=== PATIENT | female | born 1955 | race Caucasian/White ===

== ENCOUNTER → 2017-04-26 | Outpatient (CLI) | payer OTHER ==
--- NOTE | 2017-04-26 14:13 | REPMRS ---
Patient History The patient states she had a clinical breast exam in Patient is postmenopausal. No known family history of cancer. Digital Woman Screen Mammo: April 26, 2017 - Exam #: [id number] Bilateral CC and MLO view(s) were taken. Technologist: Cecelia Nix, Technologist Prior study comparison: March 27, 2012, digital woman screen mammo performed at [facility]. FINDINGS: The breast tissue is heterogeneously dense. This may lower the sensitivity of mammography. The patient states that there are no palpable abnormalities or other breast complaints. There has been no change in the appearance of the mammogram from the prior studies. There is a moderate amount of residual fibroglandular tissue which is fairly symmetric. There is no interval development of dominant mass, areas of architectural distortion, or clustered microcalcification typical of malignancy. ASSESSMENT: BI-RADS/ACR category 2 mammogram. Benign finding(s). Recommendation Routine screening mammogram in 1 year (for women over age 40). This mammogram was interpreted with the aid of an FDA-approved computer-aided dectection system. A. Negative x-ray reports should not delay biopsy if a dominant or clinically suspicious mass is present. B. Not all cancers are identified by mammography. C. Adenosis and dense breast may obscure an underlying neoplasm. Electronically Signed By: Jose M Garibay M.D. 04/26/17 [id number]
== END ==
LOC: M WHC 13:02
PROVIDERS: ATTEND Nurse Practitioner Family
DX: Z12.31 Encounter for screening mammogram for malignant neoplasm of breast (principal)

== ENCOUNTER → 2018-05-01 | Outpatient (REF) | payer OTHER ==
[2018-05-03 14:15] LABS: HPV HYBRID CAPTURE II Negative (Negative)
== END ==
LOC: M SFHCWAGY 13:12
DX: Z12.4 Encounter for screening for malignant neoplasm of cervix (principal)

== ENCOUNTER → 2018-05-01 | Outpatient (CLI) | payer OTHER | LOC: M WHC 13:13 | DX: Z12.31 Encounter for screening mammogram for malignant neoplasm of breast (principal); N60.31 Fibrosclerosis of right breast; N60.32 Fibrosclerosis of left breast ==

== ENCOUNTER → 2018-08-10 | Outpatient (REF) | payer OTHER ==
[2018-08-10 19:02] LABS: APPEARANCE, URINE CLEAR (CLEAR); BACTERIA, URINE AUTO 2+ (NEGATIVE); BILIRUBIN, URINE AUTO NEGATIVE (NEGATIVE); BLOOD, URINE BLOOD NEGATIVE (NEGATIVE); COLOR, URINE YELLOW (YELLOW); GLUCOSE, URINE (UA) AUTO NEGATIVE (NEGATIVE); KETONE, URINE AUTO NEGATIVE (NEGATIVE); LEUKOCYTE ESTERASE, URINE AUTO NEGATIVE (NEGATIVE); NITRITE, URINE AUTO NEGATIVE (NEGATIVE); PROTEIN, URINE AUTO NEGATIVE (NEGATIVE); RBC, URINE AUTO 4 /HPF (0-3); SPECIFIC GRAVITY URINE AUTO 1.012 (1.002-1.035); SQUAMOUS EPITHELIAL CELL UR AU 0 /HPF (0-6); UROBILINOGEN, URINE AUTO 0.2 mg/dL (0.0-2.0); WBC, URINE AUTO 1 /HPF (0-3)
== END ==
LOC: M SMT 17:05
PROVIDERS: ATTEND Urology Pediatric Urology
DX: R31.9 Hematuria, unspecified (principal)

== ENCOUNTER → 2018-08-10 | Outpatient (REF) | payer OTHER | LOC: M SFHCWAGY 15:49 | PROVIDERS: ATTEND Nurse Practitioner Family | DX: Z12.4 Encounter for screening for malignant neoplasm of cervix (principal) ==

== ENCOUNTER → 2018-08-28 | Outpatient (CLI) | payer OTHER ==
[2018-08-28 17:15] LABS: BASO # 0.1 10^3/uL (0.0-0.2); BASO % 0.7 % (0.0-1.0); EOS # 0.3 10^3/uL (0.0-0.50); EOS % 3.5 % (0.0-3.0); HEMATOCRIT 45.2 % (36.0-47.0); LYMPH # 2.9 10^3/uL (1.5-4.5); LYMPH % 38.4 % (24.0-44.0); MEAN CORPUSCULAR HEMOGLOBIN 31.4 pg (27.0-33.0); MEAN CORPUSCULAR HGB CONC 33.2 g/dl (32.0-36.5); MEAN CORPUSCULAR VOLUME 94.6 fl (80.0-96.0); MONO # 0.7 10^3/uL (0.0-0.8); MONO % 8.7 % (0.0-5.0); NEUTROPHILS # 3.7 10^3/uL (1.8-7.7); NEUTROPHILS % 48.6 % (36.0-66.0); PLATELET COUNT, AUTOMATED 319 10^3/uL (150-450); RED BLOOD COUNT 4.78 10^6/uL (4.00-5.40); WHITE BLOOD COUNT 7.5 10^3/uL (4.0-10.0)
[2018-08-28 17:25] LABS: COLLAGEN EPINEPHRINE 152 SECONDS (74-162)
[2018-08-28 17:29] LABS: PROTHROMBIN TIME 13.3 SECONDS (12.1-14.4)
[2018-08-28 17:30] LABS: ALBUMIN 4.1 GM/DL (3.2-5.2); ALT/SGPT 29 U/L (12-78); ANTI-STREPTOLYSIN O QUANT 36.1 IU/ML (<214.0); BILIRUBIN,TOTAL 0.3 MG/DL (0.2-1.0); BLOOD UREA NITROGEN 19 MG/DL (7-18); CALCIUM LEVEL 9.5 MG/DL (8.8-10.2); CARBON DIOXIDE LEVEL 30 MEQ/L (21-32); CHLORIDE LEVEL 108 MEQ/L (98-107); CREATININE FOR GFR 0.87 MG/DL (0.55-1.30); GLOMERULAR FILTRATION RATE > 60.0 (>45); GLUCOSE, FASTING 89 MG/DL (70-100); PARTIAL THROMBOPLASTIN TIME 33.7 SECONDS (25.4-37.6); POTASSIUM SERUM 4.7 MEQ/L (3.5-5.1); SODIUM LEVEL 142 MEQ/L (136-145); TOTAL PROTEIN 7.1 GM/DL (6.4-8.2)
== END ==
LOC: M SMT 13:13
PROVIDERS: ATTEND Urology Pediatric Urology
DX: R31.9 Hematuria, unspecified (principal)

== ENCOUNTER → 2018-08-28 | Outpatient (CLI) | payer OTHER ==
[~2018-08-28] MED LIST: ISOVUE-370 76% 100ML VIAL (Q9967) As Ordered ONE
--- NOTE | 2018-08-29 07:33 | REP ---
Clinical: Hematuria. Technique: Axial precontrast, contrast enhanced, and delayed images of the abdomen and pelvis using 100 ml Isovue 370 intravenous contrast material with coronal and sagittal re-formations. Findings: Evaluation of the urinary tract system demonstrates normal appearance the bilateral kidneys in all phases of enhancement. No evidence for nephroureterolithiasis, hydroureteronephrosis, significant cystic or renal mass lesion identified. Kidneys demonstrate symmetric enhancement along with symmetric excretion on delayed imaging. Liver, spleen, pancreas, right adrenal gland are normal. 3.5 cm left adrenal adenoma identified. The enteric system is without obstruction or acute inflammatory process. Evidence for prior gastric bypass surgery noted. Normal terminal ileum and appendix identified in the right lower quadrant. Colonic and sigmoid diverticulosis noted without acute diverticulitis. Pelvis demonstrates normal bladder and age-appropriate uterus/adnexa. No ascites. No free air. No adenopathy. Abdominal aorta and vasculature without aneurysm or dissection. Musculoskeletal structures demonstrate grade 1 anterolisthesis at L4-5 with chronic spondylolysis and associated hypertrophic facet changes. Advanced degenerative disc osteophyte complex also noted at L2-3. Impression: 1. Normal appearance to the urinary tract system. 2. Diverticulosis without acute diverticulitis. 3. 3.5 cm benign left adrenal adenoma. 4. Chronic grade 1 spondylolisthesis with spondylolysis at L4-5 along with advanced focal degenerative disc osteophyte complex at L2-3. Electronically Signed by Ron Jarvis MD 08/29/2018 07:25 A
== END ==
LOC: M RAD 13:41
PROVIDERS: ATTEND Urology Pediatric Urology
DX: R31.9 Hematuria, unspecified (principal); K57.30 Diverticulosis of large intestine without perforation or abscess without bleeding; D35.01 Benign neoplasm of right adrenal gland; Z98.84 Bariatric surgery status; M43.16 Spondylolisthesis, lumbar region
CPT/HCPCS: 74178; Q9967

== ENCOUNTER → 2018-09-03 | Outpatient (REF) | payer OTHER | LOC: M SMT 17:15 | PROVIDERS: ATTEND Urology Pediatric Urology | DX: R31.9 Hematuria, unspecified (principal) ==

== ENCOUNTER → 2018-09-14 | Outpatient (REF) | payer OTHER | LOC: M SMT 16:55 | PROVIDERS: ATTEND Urology Pediatric Urology | DX: R31.9 Hematuria, unspecified (principal) ==

== ENCOUNTER → 2019-03-13 | Outpatient (CLI) | payer OTHER ==
--- NOTE | 2019-03-13 19:53 | REP ---
MRI LEFT ANKLE: TECHNIQUE: Sagittal proton density, STIR, axial proton density fat sat, T1, coronal proton density, STIR. The Achilles, anterior tibial and peritoneal tendons are intact without significant tenosynovitis. There is a partial tear of the distal posterior tibial tendon. There is mild fluid surrounding portions of the flexor halluces longus and flexor digitorum longus suggesting mild tenosynovitis, the fluid surrounding the flexor digitorum longus is above the level of the ankle joint and the fluid surrounding the flexor halluces longus is in the plantar aspect of the foot adjacent to the distal calcaneus. Anterior and posterior talofibular, calcaneofibular, tibiofibular and deltoid ligaments are intact. The plantar tendon is intact. There is no evidence of plantar fasciitis. Increased signal and fluid is seen in the sinus tarsi suggesting sinus tarsi syndrome. There is minor marrow edema in the medial and lateral malleoli. There is diffuse arthritic change of the intertarsal joints with subchondral marrow edema, specifically subchondral marrow edema is seen in the distal navicular, the cuneiform bones and base of metatarsals. No osteochondral defect is seen along the talar dome. IMPRESSION: Partial tear distal posterior tibial tendon. There is mild fluid around the superior flexor digitorum longus tendon and plantar aspect of flexor halluces longus tendon suggesting mild tenosynovitis. 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 Arthritic changes of the intertarsal and tarsal/metatarsal joints. Electronically Signed by Jose M Malagon MD 03/15/2019 10:52 A
== END ==
LOC: M RAD 15:33
PROVIDERS: ATTEND Podiatrist
DX: M66.372 Spontaneous rupture of flexor tendons, left ankle and foot (principal)

== ENCOUNTER → 2019-07-09 | Outpatient (CLI) | payer OTHER ==
--- NOTE | 2019-07-10 09:24 | REPMRS ---
Patient History The patient states she had a clinical breast exam in June 2019.No known family history of cancer. No Hormone Replacement Therapy Digital Woman Screen Mammo: July 09, 2019 - Exam #: [id number] Bilateral CC and MLO view(s) were taken. Technologist: Ирина Bauer, Technologist Prior study comparison: May 01, 2018, bilateral digital woman screen mammo performed at [facility]. April 26, 2017, digital woman screen mammo performed at [facility]. April 25, 2016, digital woman screen mammo performed at [facility]. FINDINGS: The breast tissue is heterogeneously dense. This may lower the sensitivity of mammography. There is a moderate amount of heterogeneously dense fibroglandular tissue which is fairly symmetric. There is no interval development of dominant mass, architectural distortion, or grouped microcalcification typical of malignancy. There has been no change in the appearance of the mammogram from the prior studies. 3-D tomosynthesis shows no additional findings. Assessment: BI-RADS/ACR category 1 mammogram. Negative Mammogram. Recommendation Routine screening mammogram of both breasts in 1 year (for women over age 40). This patient's Lifetime Breast Cancer RIsk is estimated at 7.2 %. This mammogram was interpreted with the aid of an FDA-approved computer-aided dectection system. Electronically Signed By: Yoni Rey MD 07/10/19 [id number]
== END ==
LOC: M WHC 15:17
PROVIDERS: ATTEND Nurse Practitioner Family
DX: Z12.31 Encounter for screening mammogram for malignant neoplasm of breast (principal)

== ENCOUNTER → 2020-02-21 | Outpatient (CLI) | payer OTHER ==
[2020-04-09 10:15] LABS: BLOOD UREA NITROGEN 15 MG/DL (7-18); CALCIUM LEVEL 9.6 MG/DL (8.8-10.2); CARBON DIOXIDE LEVEL 30 MEQ/L (21-32); CHLORIDE LEVEL 109 MEQ/L (98-107); CREATININE FOR GFR 0.84 MG/DL (0.55-1.30); GLOMERULAR FILTRATION RATE > 60.0 (>45); GLUCOSE, FASTING 96 MG/DL (70-100); POTASSIUM SERUM 4.2 MEQ/L (3.5-5.1); SODIUM LEVEL 143 MEQ/L (136-145)
[2020-04-09 11:23] LABS: BASO % 0.4 % (0.0-1.0); EOS # 0.2 10^3/uL (0.0-0.5); EOS % 2.7 % (0.0-3.0); HEMATOCRIT 48.1 % (36.0-47.0); HEMOGLOBIN 15.7 g/dl (12.0-15.5); LYMPH # 2.2 10^3/uL (1.5-5.0); LYMPH % 32.3 % (24.0-44.0); MEAN CORPUSCULAR HEMOGLOBIN 31.5 pg (27.0-33.0); MEAN CORPUSCULAR HGB CONC 32.6 g/dl (32.0-36.5); MEAN CORPUSCULAR VOLUME 96.6 fl (80.0-96.0); MONO # 0.6 10^3/uL (0.0-0.8); MONO % 8.1 % (0.0-5.0); NEUTROPHILS # 3.8 10^3/uL (1.5-8.5); NEUTROPHILS % 56.4 % (36.0-66.0); PLATELET COUNT, AUTOMATED 311 10^3/uL (150-450); RED BLOOD COUNT 4.98 10^6/uL (4.00-5.40); WHITE BLOOD COUNT 6.8 10^3/uL (4.0-10.0)
--- NOTE | 2020-04-15 10:33 | ECGEPIP ---
[facility] Test Date: 2020-02-21 Pat Name: MARILY DAHL Department: Room: - Gender: Female Director Marketing: AUNDREA : 1955 Requested By: Cecil Baird Order Number: [id number] Reading MD: Cecil Perez Measurements Intervals Benedict Rate: 61 P: 57 OH: 171 QRS: 17 QRSD: 79 T: 43 QT: 398 QTc: 402 Interpretive Statements SINUS RHYTHM NORMAL ECG SEE SCANNED DOWNTIME REPORT
== END ==
LOC: M LAB 07:48
PROVIDERS: ATTEND Podiatrist
DX: Z01.818 Encounter for other preprocedural examination (principal); D17.24 Benign lipomatous neoplasm of skin and subcutaneous tissue of left leg

== ENCOUNTER 2020-02-28 09:05 | Day surgery (SDC) | payer OTHER ==
[~2020-02-28 09:05] MED LIST changes: +BACITRACIN PWD 50,000 UNITS VIAL ONE; +BUPIVACAINE HCL 0.5% 30 ML VIAL ONE; -ISOVUE-370 76% 100ML VIAL (Q9967) As Ordered ONE; +LIDOCAINE 2% MDV 20ML VIAL ONE; +MIDAZOLAM INJ 2MG/2ML VIAL (J2250 PER 1MG) ONE; +NEOSPORIN GU IRRIG 20 ML VIAL ONE; +ONDANSETRON 4MG/2ML VIAL ONE; +ceFAZolin 2 GM/D5W 50 ML IV BAG (J0690 PER 500MG) ONE; +dexameTHASONE 4 MG/ML 1ML VIAL (J1100 PER 1MG) ONE; +fentaNYL 100 MCG/2 ML INJECTION (J3010) ONE; +propofoL 500 MG/50 ML VIAL ONE
[2020-02-28] MEDS ORDERED: LIDOCAINE 2% 100MG/5ML SDV (FOR ANES.) ONE (11:11)
[2020-02-28] MEDS ORDERED: PHENYLephrine HCL 500 MCG/5 ML (100MCG/ML) SYRINGE (J2370) ONE (11:59)
--- NOTE | 2020-04-30 11:56 | RO ---
DATE OF OPERATION: 02/28/2020 PREOPERATIVE DIAGNOSIS: Lipoma, lateral left ankle/foot. POSTOPERATIVE DIAGNOSIS: Lipoma, lateral left ankle/foot. SURGEON: Cecil Baird DPM DIRECTOR CLINICAL DATA: None. ANESTHESIA: General. ESTIMATED BLOOD LOSS: Less than 10 mL. IRRIGATION: Dilute bacitracin, neomycin, and polymyxin B solution. HEMOSTASIS: Thigh pneumatic tourniquet at 300 mm of mercury for 24 minutes. DRAINS UTILIZED: TLS drain. DESCRIPTION OF OPERATION: On 02/28/2020, patient was taken from her hospital room to the operating room and placed on the operating table in a supine position. Following the induction of general anesthesia, attention was directed to the left lower extremity, which was prepped and draped in the usual aseptic fashion. Attention was directed to the patient's foot. There was noted to be a soft tissue mass, measuring approximately 6 cm x 3.4 cm x 1 cm in depth. A 7.5 cm incision was placed longitudinally across the soft tissue mass. Dissection was carried down to the mass. The nerve was identified and dissected off the lipoma. The lipoma was then removed in two sections. Bleeders, as encountered, were electrocoagulated or ligated. The thigh tourniquet was deflated prior to wound closure. Any remaining bleeders were electrocoagulated. TLS drain was placed into the wound and tied with 3-0 silk. Subcutaneous tissues were coapted and maintained with 4-0 Monocryl. Skin was coapted and maintained with 3-0 nylon in simple interrupted-type fashion. A compressive dressing was applied consisting of Adaptic, 4 x 4's, 4 x 4 sponge, Kerlix, and Coban. Instantaneous filling time was noted in digits 1-5 of the patient's left foot. Patient, having apparently tolerated the surgical procedure well, was taken from the operating room (OR) to the recovery room for further monitoring by the anesthesia department. Postoperative instructions were given upon discharge. MARTHA
== END 2020-02-28 14:20 | disposition home or self-care (01) ==
LOC: M SDC 09:05
PROVIDERS: ATTEND Podiatrist
DX: D17.24 Benign lipomatous neoplasm of skin and subcutaneous tissue of left leg (principal); M25.572 Pain in left ankle and joints of left foot; B07.0 Plantar wart; I10 Essential (primary) hypertension; M54.5 Low back pain; E78.5 Hyperlipidemia, unspecified; Z88.1 Allergy status to other antibiotic agents; Z79.899 Other long term (current) drug therapy
CPT/HCPCS: 11406; 88307; 97116; 97161; J0690; J1100; J2250; J2370; J2405; J3010

== ENCOUNTER → 2020-06-22 | Outpatient (CLI) | payer SELFPAY | LOC: M LABSMTC 10:30 | PROVIDERS: ATTEND Pediatrics | DX: Z20.828 Contact with and (suspected) exposure to other viral communicable diseases (principal) ==

== ENCOUNTER → 2020-08-21 | Outpatient (CLI) | payer OTHER, SELFPAY ==
--- NOTE | 2020-08-21 15:31 | REPMRS ---
Patient History The patient states she had a clinical breast exam in July 2020. No known family history of cancer. No Hormone Replacement Therapy Digital Woman Screen Mammo: August 21, 2020 - Exam #: [id number] Bilateral CC and MLO view(s) were taken. Technologist: Jory Lantigua Technologist Prior study comparison: July 09, 2019, bilateral digital woman screen mammo performed at [facility]. May 01, 2018, bilateral digital woman screen mammo performed at [facility]. April 26, 2017, digital woman screen mammo performed at [facility]. FINDINGS: The breast tissue is heterogeneously dense. This may lower the sensitivity of mammography. The Volpara volumetric breast density category is: C. There is a moderate amount of heterogeneously dense fibroglandular tissue which is fairly symmetric. There is no interval development of dominant mass, architectural distortion, or grouped microcalcification typical of malignancy. There has been no change in the appearance of the mammogram from the prior studies. 3-D tomosynthesis shows no additional findings. Assessment: BI-RADS/ACR category 1 mammogram. Negative Mammogram. Recommendation Routine screening mammogram of both breasts in 1 year (for women over age 40). This patient's [facility] Lifetime Breast Cancer RIsk is estimated at 6.9 %. This mammogram was interpreted with the aid of an FDA-approved computer-aided dectection system. Electronically Signed By: Yoni Rey MD 08/21/20 1809
== END ==
LOC: M WHC 13:53
PROVIDERS: ATTEND Nurse Practitioner Family
DX: Z12.31 Encounter for screening mammogram for malignant neoplasm of breast (principal)

== ENCOUNTER → 2021-04-12 | Outpatient (CLI) | payer MEDICARE, OTHER | LOC: M RAD 08:17 | PROVIDERS: ATTEND Nurse Practitioner Adult Health | DX: R06.2 Wheezing (principal) ==

== ENCOUNTER → 2021-10-27 | Outpatient (CLI) | payer MEDICARE, OTHER | LOC: M WHC 10:22 | PROVIDERS: ATTEND Obstetrics & Gynecology | DX: Z12.31 Encounter for screening mammogram for malignant neoplasm of breast (principal) ==

== ENCOUNTER → 2021-10-27 | Outpatient (REF) | payer MEDICARE, OTHER | LOC: M SFHCWAGY 13:01 | PROVIDERS: ATTEND Obstetrics & Gynecology | DX: Z12.4 Encounter for screening for malignant neoplasm of cervix (principal); Z77.9 Other contact with and (suspected) exposures hazardous to health ==

== ENCOUNTER → 2022-11-03 | Outpatient (CLI) | payer MEDICARE, OTHER | LOC: M WHC 13:00 | PROVIDERS: ATTEND Obstetrics & Gynecology | DX: Z12.31 Encounter for screening mammogram for malignant neoplasm of breast (principal) ==

== ENCOUNTER → 2022-12-07 | Outpatient (CLI) | payer MEDICARE, OTHER | LOC: M WHC 10:21 | PROVIDERS: ATTEND Obstetrics & Gynecology | DX: M85.851 Other specified disorders of bone density and structure, right thigh (principal); M85.852 Other specified disorders of bone density and structure, left thigh ==

== ENCOUNTER → 2023-11-30 | Outpatient (CLI) | payer MEDICARE, OTHER | LOC: M WUC 11:35 | PROVIDERS: ATTEND Physician Assistant | DX: M25.561 Pain in right knee (principal); M17.11 Unilateral primary osteoarthritis, right knee; M11.261 Other chondrocalcinosis, right knee; M25.461 Effusion, right knee ==

== ENCOUNTER → 2023-12-13 | Outpatient (CLI) | payer MEDICARE, OTHER | LOC: M WHC 09:21 | PROVIDERS: ATTEND Obstetrics & Gynecology | DX: Z12.31 Encounter for screening mammogram for malignant neoplasm of breast (principal); R92.323 Mammographic fibroglandular density, bilateral breasts ==

== ENCOUNTER → 2024-02-16 | Outpatient (CLI) | payer MEDICARE, OTHER ==
[~2024-02-16] MED LIST changes: -BACITRACIN PWD 50,000 UNITS VIAL ONE; -BUPIVACAINE HCL 0.5% 30 ML VIAL ONE; +GASTROGRAFIN SOLUTION 30ML As Ordered ONE; +HYDR-3363 PO; +ISOVUE-370 76% 100ML VIAL As Ordered ONE; -LIDOCAINE 2% MDV 20ML VIAL ONE; +MELO15TA28 PO; -MIDAZOLAM INJ 2MG/2ML VIAL (J2250 PER 1MG) ONE; -NEOSPORIN GU IRRIG 20 ML VIAL ONE; -ONDANSETRON 4MG/2ML VIAL ONE; +ROSU5TAB40 PO; -ceFAZolin 2 GM/D5W 50 ML IV BAG (J0690 PER 500MG) ONE; -dexameTHASONE 4 MG/ML 1ML VIAL (J1100 PER 1MG) ONE; -fentaNYL 100 MCG/2 ML INJECTION (J3010) ONE; -propofoL 500 MG/50 ML VIAL ONE
== END ==
LOC: M RAD 14:51
PROVIDERS: ATTEND Internal Medicine Medical Oncology
DX: D76.3 Other histiocytosis syndromes (principal); D35.02 Benign neoplasm of left adrenal gland; K57.30 Diverticulosis of large intestine without perforation or abscess without bleeding; E05.90 Thyrotoxicosis, unspecified without thyrotoxic crisis or storm; R91.1 Solitary pulmonary nodule; I70.0 Atherosclerosis of aorta; I25.10 Atherosclerotic heart disease of native coronary artery without angina pectoris
CPT/HCPCS: 70491; 71260; 74177; Q9963; Q9967

== ENCOUNTER → 2024-08-15 | Outpatient (REF) | payer MEDICARE, OTHER ==
[~2024-08-15] MED LIST changes: -GASTROGRAFIN SOLUTION 30ML As Ordered ONE; -ISOVUE-370 76% 100ML VIAL As Ordered ONE; -ROSU5TAB40 PO; +ROSU5TAB49 PO
== END ==
LOC: M LAB REF 17:48
PROVIDERS: ATTEND Internal Medicine Endocrinology, Diabetes & Metabolism
DX: E04.2 Nontoxic multinodular goiter (principal)

== ENCOUNTER → 2024-09-14 | Outpatient (CLI) | payer MEDICARE, OTHER | LOC: M RAD 09:21 | PROVIDERS: ATTEND Physician Assistant | DX: M54.2 Cervicalgia (principal); M25.512 Pain in left shoulder; M25.511 Pain in right shoulder; M47.812 Spondylosis without myelopathy or radiculopathy, cervical region; M19.011 Primary osteoarthritis, right shoulder; M19.012 Primary osteoarthritis, left shoulder ==

== ENCOUNTER → 2024-09-25 | Outpatient (CLI) | payer MEDICARE, OTHER ==
[~2024-09-25] MED LIST changes: +ISOVUE-370 76% 100ML VIAL As Ordered ONE; +PRED10TA2
== END ==
LOC: M RAD 08:32
PROVIDERS: ATTEND Internal Medicine Hematology & Oncology
DX: R91.1 Solitary pulmonary nodule (principal)
CPT/HCPCS: 71260; 74177; Q9967

== ENCOUNTER → 2024-11-04 | Outpatient (CLI) | payer MEDICARE, OTHER ==
[~2024-11-04] MED LIST changes: -ISOVUE-370 76% 100ML VIAL As Ordered ONE
== END ==
LOC: M WHC 13:19
PROVIDERS: ATTEND Internal Medicine Medical Oncology
DX: R92.8 Other abnormal and inconclusive findings on diagnostic imaging of breast (principal); R92.323 Mammographic fibroglandular density, bilateral breasts
CPT/HCPCS: 77066; G0279

== ENCOUNTER → 2025-02-26 | Outpatient (CLI) | payer MEDICARE, OTHER ==
[2025-02-26 12:51] LABS: BASO # 0.0 10^3/uL (0.0-0.2); BASO % 0.5 % (0.0-1.0); EOS # 0.2 10^3/uL (0.0-0.5); EOS % 2.8 % (0.0-3.0); LYMPH # 2.0 10^3/uL (1.5-5.0); LYMPH % 31.5 % (24.0-44.0); MONO # 0.6 10^3/uL (0.0-0.8); MONO % 9.4 % (2.0-8.0); NEUTROPHILS # 3.6 10^3/uL (1.5-8.5); NEUTROPHILS % 55.6 % (36.0-66.0)
[2025-02-26 13:08] LABS: INR 0.98
[2025-02-26 13:16] LABS: ALT/SGPT 25 U/L (7.0-40); AST/SGOT 26 U/L (<34); CALCIUM LEVEL 9.7 MG/DL (8.3-10.6); CARBON DIOXIDE LEVEL 30 MMOL/L (20-31); CHLORIDE LEVEL 106 MMOL/L (98-107); CREATININE FOR GFR 0.71 MG/DL (0.55-1.30); GLOMERULAR FILTRATION RATE > 90.0 (>45); IRON (FE) 101 UG/DL (50-170); POTASSIUM SERUM 4.9 MMOL/L (3.5-5.1); SODIUM LEVEL 145 MMOL/L (136-145)
[2025-02-26 13:17] LABS: PERCENT SATURATION 34.0 % (13.2-45.0)
[2025-02-26 13:26] LABS: PLATELET COUNT, AUTOMATED 324 10^3/uL (150-450)
== END ==
LOC: M LAB 11:27
PROVIDERS: ATTEND Orthopaedic Surgery
DX: Z01.818 Encounter for other preprocedural examination (principal); M25.561 Pain in right knee

== ENCOUNTER → 2025-06-09 | Outpatient (CLI) | payer MEDICARE, OTHER ==
[2025-06-09 08:06] LABS: PLATELET COUNT, AUTOMATED 390 10^3/uL (150-450)
[2025-06-09 08:38] LABS: ALT/SGPT 27.0 U/L (7.0-40); AST/SGOT 23.0 U/L (<34); CALCIUM LEVEL 9.8 MG/DL (8.3-10.6); CARBON DIOXIDE LEVEL 29.0 MMOL/L (20-31); CHLORIDE LEVEL 107.0 MMOL/L (98-107); CHOLESTEROL LEVEL 174.0 MG/DL (<200); CHOLESTEROL RISK RATIO 2.6 (<5); CREATININE FOR GFR 0.79 MG/DL (0.55-1.30); GLOMERULAR FILTRATION RATE 80.4 (>39); LDL CHOLESTEROL 96.1 MG/DL (<100); MAGNESIUM LEVEL 2.1 MG/DL (1.8-2.4); NON-HDL-C 107.3 MG/DL; POTASSIUM SERUM 4.5 MMOL/L (3.5-5.1); SODIUM LEVEL 144.0 MMOL/L (136-145); TRIGLYCERIDES LEVEL 56.0 MG/DL (<150)
[2025-06-09 08:41] LABS: TOTAL 25(OH) VITAMIN D 79.7 NG/ML (20.0-100.0)
== END ==
LOC: M LAB 07:17
PROVIDERS: ATTEND Internal Medicine Medical Oncology
DX: E78.2 Mixed hyperlipidemia (principal); G47.62 Sleep related leg cramps; E83.51 Hypocalcemia